=== PATIENT | female | born 1970 | race Caucasian/White ===

== ENCOUNTER → 2018-02-26 | Outpatient (CLI) | payer BC ==
[~2018-02-26] MED LIST: CALC600T4 PO; CIPR500T87 PO; HYDR-3237 PO; IRON18TA PO; MULT-6 PO; OMEG1CAP23 PO; ONDA4TAB10 PO
== END | disposition home or self-care (01) ==
LOC: CFH 07:41
PROVIDERS: ATTEND Obstetrics & Gynecology
DX: Z12.31 Encounter for screening mammogram for malignant neoplasm of breast (principal)
CPT/HCPCS: 77067

== ENCOUNTER → 2020-03-09 | Outpatient (CLI) | payer BC ==
[~2020-03-09] MED LIST changes: -CALC600T4 PO; +CALC600T60 PO
== END | disposition home or self-care (01) ==
LOC: CFH 07:41
PROVIDERS: ATTEND Obstetrics & Gynecology
DX: Z12.31 Encounter for screening mammogram for malignant neoplasm of breast (principal)
CPT/HCPCS: 77067